=== PATIENT | female | born 1935 | race Caucasian/White ===

== ENCOUNTER 2018-07-15 12:44 | Day surgery (SDC) | payer MEDICARE, OTHER ==
[~2018-07-15] VITALS: Ht 165.1 cm; Wt 59.3 kg
[~2018-07-15 12:44] MED LIST: PROPOFOL 200 MG INJ ONE
[2018-07-15] MEDS ORDERED: VITAMIN D (13:23)
[2018-07-15] MEDS ORDERED: FERROUS SULFATE (13:23)
[2018-07-15] MEDS ORDERED: SPIRONOLACTONE (13:23)
[2018-07-15] MEDS ORDERED: LACTULOSE (13:23)
[2018-07-15] MEDS ORDERED: FUROSEMIDE (13:23)
[2018-07-15] MEDS ORDERED: PROPRANOLOL (13:23)
[2018-07-15 13:25] VITALS: Ht 165.1 cm; Wt 59.3 kg
[2018-07-15 13:50] VITALS: BP 132/58; PULSE 63; RESP 16
[2018-07-15] MEDS ORDERED: LIDOCAINE 2% (SDV) 5 ML INJ ONE (15:43)
[2018-07-15] MEDS ORDERED: PROPOFOL 40 ML ONE (15:43)
--- NOTE | 2018-07-15 15:43 | PREAC ---
Date/Time of Note Date/Time of Note DATE: 07/15/18 TIME: 15:40 Anesthesia Eval and Record Evaluation Time Pre-Procedure Interview DATE: 07/15/18 TIME: 15:40 Age 82 Sex female NPO: 8 hrs Preoperative diagnosis esophageal varices Planned procedure EGD Past Medical History Past Medical History: Includes Cardio: HTN, Dyslipidemia, CAD, Arrythmia Musculoskeletal: Osteoarthritis Hepatic: Alcohol abuse, Cirrhosis Infection(s): Hep C Surgery & Anesthesia Issues No known issue Meds Anticoagulation: No Beta Flako within 24 hr: No Reason Beta Falko not given: Pt. not on B-Flako Reported Medications [Propranolol] No Conflict Check 07/15/18 [Lactulose] No Conflict Check 07/15/18 [Furosemide] No Conflict Check 07/15/18 [Vitamin D] No Conflict Check 07/15/18 [Ferrous Sulfate] No Conflict Check 07/15/18 [Spironolactone] No Conflict Check 07/15/18 Meds reviewed: Yes Allergies Coded Allergies: No Known Allergy (Unverified , 07/15/18) Allergies Reviewed: Yes Labs/Studies Labs Reviewed: Reviewed by anesthesiologist test: N/A Studies: ECG Pre-procedure Exam Last vitals Vital Signs Date Temp Pulse Resp B/P (MAP) Pulse Ox O2 O2 Flow FiO2 Time Delivery Rate 07/15/18 98.0 63 16 132/58 99 Room Air 13:50 (82) Airway: Adequate mouth opening, Adequate thyromental dist Mallampati: Mallampati II Teeth: Normal Lung: Normal Heart: Normal ASA Physical Status ASA physical status: 4 Emergency: None Planned Anesthetic General/MAC: MAC Planned Pain Management Parenteral pain med Pre-operative Attestations Prior to commencing anesthesia and surgery, the patient was re-evaluated, there was verification of: *The patient's identity *The results of appropriate recent lab work and preoperative vital signs *The above evaluation not changing prior to induction *Anesthetic plan, risk benefits, alternative and complications discussed with patient/family; questions answered; patient/family understands, accepts and wishes to proceed. DENISSE YORK MD Jul 15, 2018 15:43
--- NOTE | 2018-07-15 16:09 | PAC ---
Date/Time of Note Date/Time of Note DATE: 07/15/18 TIME: 16:09 Post-Anesthesia Notes Post-Anesthesia Note Last documented vital signs Vital Signs Date Temp Pulse Resp B/P (MAP) Pulse Ox O2 O2 Flow FiO2 Time Delivery Rate 07/15/18 98.0 63 16 132/58 99 Room Air 13:50 (82) Activity: WNL Respiratory function: WNL Cardiovascular function: WNL Mental status: Baseline Pain reasonably controlled: Yes Hydration appropriate: Yes Nausea/Vomiting absent: Yes Comments BP:146/66, P:76, Spo2:100%, T:98,9 DENISSE YORK MD Jul 15, 2018 16:09
[2018-07-15 16:32] VITALS: BP 155/66; PULSE 63; RESP 14
== END 2018-07-15 17:55 | disposition home or self-care (01) ==
LOC: GIL 12:44
PROVIDERS: ATTEND Internal Medicine Gastroenterology
DX: I85.00 Esophageal varices without bleeding (principal); I10 Essential (primary) hypertension; E78.5 Hyperlipidemia, unspecified; I25.10 Atherosclerotic heart disease of native coronary artery without angina pectoris